=== PATIENT | female | born 1985 | race African-American/Black ===

== ENCOUNTER 2019-12-03 14:57 | Outpatient (REF) | payer OTHER, SELFPAY | END 2019-12-03 14:58 | disposition home or self-care (01) | LOC: HO.LAB 14:57 | PROVIDERS: PCP Internal Medicine; Visit Provider Internal Medicine | DX: Z20.828 Contact with and (suspected) exposure to other viral communicable diseases (principal) | CPT/HCPCS: 87635 ==